=== PATIENT | female | born 1975 | race Caucasian/White ===

== ENCOUNTER 2024-04-11 10:45 | Emergency (ER) | payer OTHER, SELFPAY ==
[2024-04-11] VITALS (12 sets, daily range): BP systolic 128–137; BP diastolic 86–92; PULSE 101–121; TEMP 37.2–37.5; O2SAT 91–95; BMI 32.4
--- NOTE | 2024-04-11 11:00 | XR_ITS ---
The [address] [address] Patient Name: NATALIA ARANGO MRN: [id number] date: 1975 Sex: F Assigned Patient Location: ED.MAIN Current Patient Location: ER Accession/Order Number: [id number] Exam Date: 04/11/2024 11:07 Report Date: 04/11/2024 11:37 At the request of: ALEXA ROWLAND Procedure: XR chest 1V EXAM: XR chest 1V HISTORY: sob COMPARISON: None. TECHNIQUE: One view chest FINDINGS: No focal consolidation, pneumothorax, pleural effusion or significant pulmonary vascular congestion. The cardiomediastinal silhouette is within normal limits. No acute osseous abnormality. Visualized upper abdomen is unremarkable. XR/XR chest 1V IMPRESSION: No acute cardiopulmonary process. Electronically authenticated by: MIRIAN FERRER Date: 04/11/2024 11:37
--- NOTE | 2024-04-11 11:05 | ECG_ITS ---
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
[2024-04-11] MEDS: 0.9 % SODIUM CHLORIDE 1,000 ML 1000 ML IV (11:22)
[2024-04-11] MEDS: METHYLPREDNISOLONE SOD SUCC PF 125 MG/2 ML VIAL IVP (11:22)
[2024-04-11] MEDS: IPRATROPIUM/ALBUTEROL SULFATE 3 ML AMPUL.NEB IH (11:28)
[2024-04-11 11:55] LABS: Basophils Percent Auto 0.4 % (0.2-2.0); Hematocrit 42.7 % (36.0-48.0); Hemoglobin 14.1 g/dL (12.0-16.0); Immature Granulocytes Abs Auto 0.02 10^3/uL (0.00-0.03); Immature Granulocytes Pct Auto 0.4 % (0.0-0.5); Lymphocytes Absolute Auto 0.9 10^3/uL (1.2-3.8); Lymphocytes Percent Auto 16.4 % (20.5-60.0); Mean Corpuscular Hemoglobin 29.3 pg (26.7-34.0); Mean Corpuscular Volume 88.6 fL (81.0-99.0); Mean Platelet Volume 11.3 fL (9.5-13.5); Monocytes Absolute Auto 0.6 10^3/uL (0.3-0.8); Monocytes Percent Auto 10.4 % (1.7-12.0); Neutrophils Percent Auto 72.4 % (43.0-75.0); Platelet Count 199 10^3/uL (150-450); Red Blood Count 4.82 10^6/uL (4.20-5.40); Red Cell Distribution Width 13.3 % (11.0-15.0); White Blood Count 5.5 10^3/uL (4.0-11.0)
[2024-04-11 12:11] LABS: Alanine Aminotransferase 43 U/L (14-59); Albumin Globulin Ratio 1.1; Alkaline Phosphatase 82 U/L (46-116); Anion Gap 17.3; Aspartate Amino Transferase 35 U/L (15-37); BUN Creatinine Ratio 9.7; Bilirubin Total 0.7 mg/dL (0.2-1.0); Calcium 8.5 mg/dL (8.5-10.1); Chloride 102 mmol/L (98-107); Estimated GFR (African America >60 (>=60 mL/min/1.73m^2); Estimated GFR (Non-African Ame >60 (>=60 mL/min/1.73m^2); Globulin 3.5 g/dL; Glucose 109 mg/dL (74-106); Potassium 3.3 mmol/L (3.5-5.1); Sodium 140 mmol/L (136-145); Total Protein 7.5 g/dL (6.4-8.2)
[2024-04-11 12:12] LABS: Lactate/Lactic Acid 0.8 mmol/L (0.4-2.0)
[2024-04-11 12:14] LABS: Troponin I High Sensitivity 4.9 pg/mL (4.0-51.3)
--- NOTE | 2024-04-11 12:21 | CT_ITS ---
The [address] [address] Patient Name: NATALIA ARANGO MRN: [id number] date: 1975 Sex: F Assigned Patient Location: ER Current Patient Location: Accession/Order Number: [id number] Exam Date: 04/11/2024 12:40 Report Date: 04/11/2024 13:44 At the request of: ALEXA ROWLAND Procedure: CT angio chest EXAM: CT angio chest HISTORY: shortness of breath and hypoxemia clinical suspicion of pulmonary embolus. COMPARISON: Chest x-ray 04/11/2024. CT abdomen pelvis including the lower chest 04/09/2021 TECHNIQUE: CTA chest PE study. Axial scans with reformatted coronal and sagittal images, MIP images. Individualized radiation dose reduction used for this exam. Contrast: 100 mL Omnipaque 350 FINDINGS: Pulmonary arteries: Normal pulmonary artery enhancement without thrombus or embolus. Slightly heterogeneous appearance of the smaller distal sacrum segmental vessels. Lungs/pleura: No consolidation or edema or suspicious lung lesion. Minor dependent atelectasis. No pleural effusion or pneumothorax. Mediastinum: No mass or adenopathy. Normal esophagus. Normal central airways. Cardiac/vascular: Normal heart size. No pericardial effusion. Normal aorta. No right ventricular strain. No significant coronary plaque seen. No lower neck or axillary mass or adenopathy. 11 mm nodular asymmetry left breast midportion deep is nonspecific. Images the upper abdomen demonstrates heterogeneous liver with areas of fatty infiltration and parenchymal sparing. Small low-attenuation lesion left lobe near the surface is nonspecific. CT/CT angio chest IMPRESSION: 1. Negative for pulmonary embolus. 2. No acute process in the lungs. 3. Incidental findings including 11 mm left breast nodule midportion deep. Could be followed with routine mammography. 4. Heterogeneous liver with questionable small low-attenuation lesion left lobe near the surface. Does not appear acute. Could be assessed with ultrasound. Electronically authenticated by: LORI MOREL Date: 04/11/2024 13:44
[2024-04-11] MEDS: ACETAMINOPHEN 325 MG TABLET 650 MG PO (13:01)
[2024-04-11 13:09] LABS: Influenza Virus A Antigen Positive; Influenza Virus B Antigen Negative; Internal Control Within Normal Limits; SARS-CoV-2 Ag NEGATIVE (NEGATIVE)
--- NOTE | 2024-04-11 14:11 | ED_ITS ---
HPI HPI - General Adult General Chief complaint: Upper Respiratory Infection Stated complaint: Upper Respiratory Infection Time Seen by Provider: 04/11/24 11:00 Source: patient Mode of arrival: walk-in History of Present Illness HPI narrative: The patient presented to us with 3 days history of flulike symptoms of bodyaches diarrhea and itching to cough difficulty breathing and headache, it was noted that the patient pulse ox was at the 80s mostly 89% when she presented to us she is not in respiratory distress but she is tachycardic at 110 The patient denies any other complaints Related Data Previous Rx's ?Medication ?Instructions ?Recorded ondansetron 4 mg disintegrating 4 mg PO Q8H PRN nausea and 04/11/24 tablet vomiting 5 days #15 tabs oseltamivir 75 mg capsule (Tamiflu) 75 mg PO Q12H 5 days #10 caps 04/11/24 prednisone 20 mg tablet 40 mg (2 x 20 mg) PO DAILY 5 days 04/11/24 #10 tabs Allergies Allergy/AdvReac Type Severity Reaction Status Date / Time No Known Drug Allergies Allergy Verified 04/11/24 10:54 Opioid HPI Opioid Management Most Recent Opioid Data: No Data to Display Review of Systems ROS Status of ROS 10 or more systems reviewed and unremark able except as noted in history and below Exam Narrative Exam Narrative: Nurses notes and vital signs reviewed and patient is not hypoxic. General: Well-appearing and in no apparent distress. Skin: Warm, dry, no pallor noted. No rash. Head: Normocephalic, atraumatic. Neck: Supple, non-tender. Eye: Pupils are equal, round and EOMI. No scleral icterus. Ears, Nose, Mouth, and Throat: TM are clear, no nasal mucosal hypertrophy. Oral mucosa is moist, no posterior oropharynx erythema, uvula is mid-line Cardiovascular: Regular Rate and Rhythm without murmur, gallop or rub. Respiratory: Distant breathing sound bilaterally Back: No midline thoracic or lumbar vertebral tenderness. No CVA tenderness Musculoskeletal: normal ROM, no calf or popliteal tenderness, no lower extremity edema/swelling GI: Abdomen is soft, non-distended. Normal bowel sounds. No masses appreciated. No tenderness to palpation. No rebound, guarding, or rigidity noted. Neurological: A&O x4. No cranial nerve dysfunction observed. No truncal a taxia. Moves all extremities. Sensation intact. Psychiatric: Cooperative and interactive. Normal mood and affect. Constitutional Vital Signs, click to edit/add: Last Vital Signs Temp 99.0 F 04/11/24 13:55 Pulse 117 H 04/11/24 12:51 Resp 18 04/11/24 13:54 BP 128/88 04/11/24 13:53 Pulse Ox 91 L 04/11/24 13:54 O2 Del Method Nasal Cannula 04/11/24 11:30 O2 Flow Rate 2 04/11/24 11:30 Course Vital Signs Vital signs: Vital Signs Temperature 99.5 F 04/11/24 10:47 Pulse Rate 121 H 04/11/24 10:47 Respiratory Rate 26 H 04/11/24 10:47 Blood Pressure 137/92 H 04/11/24 10:47 Pulse Oximetry 92 L 04/11/24 10:47 Oxygen Delivery Method Room Air 04/11/24 10:47 Temperature 99.0 F 04/11/24 13:55 Pulse Rate 117 H 04/11/24 12:51 Respiratory Rate 18 04/11/24 13:54 Blood Pressure 128/88 04/11/24 13:53 Pulse Oximetry 91 L 04/11/24 13:54 Oxygen Delivery Method Nasal Cannula 04/11/24 11:30 Oxygen Delivery Flow Rate 2 04/11/24 11:30 Medical Decision Making [facility] Narrative Medical decision making narrative: It was noted that the patient was hypoxemic upon arrival but she was not in respiratory distress her EKG was showing sinus tachycardia with a heart rate [address] elevation and depression The patient CBC and chemistry showed no acute pathology and due to high suspicion of possible PE or any lung pathology the patient had a CT angio done that showed no PE The patient had incidental finding of nodule to the left breast that she was instructed to follow-up as outpatient with primary care with mammogram The patient influenza a positive result is mostly explaining why she is having those symptoms Right now the patient is to continue hydration in addition to she was started on Tamiflu for the next 5 days and Zofran for supportive care in addition to prednisone for her asthma control It was noted that the patient was feeling much better after initial treatment her pulse ox is 95% at room air The patient is to follow up with primary care physician in next 2-3 days or to return to the emergency department should any of the signs or symptoms worsen or new symptoms develop. The patient agrees with the following Diagnosis and Treatment plan and the patient will be discharged home. Lab Data Labs: Lab Results 04/11/24 04/11/24 Range/Units 11:25 12:53 WBC 5.5 (4.0-11.0) 10^3/uL RBC 4.82 (4.20-5.40) 10^6/uL Hgb 14.1 (12.0-16.0) g/dL Hct 42.7 (36.0-48.0) % MCV 88.6 (81.0-99.0) fL MCH 29.3 (26.7-34.0) pg MCHC 33.0 (29.9-35.2) g/dL RDW 13.3 (11.0-15.0) % Plt Count 199 (150-450) 10^3/uL MPV 11.3 (9.5-13.5) fL Neut % (Auto) 72.4 (43.0-75.0) % Lymph % (Auto) 16.4 L (20.5-60.0) % [place] % (Auto) 10.4 (1.7-12.0) % Eos % (Auto) 0.0 L (0.9-7.0) % Baso % (Auto) 0.4 (0.2-2.0) % Neut # (Auto) 4.0 (1.4-6.5) 10^3/uL Lymph # (Auto) 0.9 L (1.2-3.8) 10^3/uL [place] # (Auto) 0.6 (0.3-0.8) 10^3/uL Eos # (Auto) 0.0 (0.0-0.7) 10^3/uL Baso # (Auto) 0.0 (0.0-0.1) 10^3/uL Abs Immat Gran (auto) 0.02 (0.00-0.03) 10^3/uL Imm/Tot Granulo (auto) 0.4 (0.0-0.5) % Sodium 140 (136-145) mmol/L Potassium 3.3 L (3.5-5.1) mmol/L Chloride 102 (98-107) mmol/L Carbon Dioxide 24.0 (21.0-32.0) mmol/L Anion Gap 17.3 BUN 9.0 (7.0-18.0) mg/dL Creatinine 0.93 (0.55-1.02) mg/dL Est GFR ( Amer) >60 (>=60 mL/min/1.73m^2) Est GFR (Non-Af Amer) >60 (>=60 mL/min/1.73m^2) BUN/Creatinine Ratio 9.7 Glucose 109 H (74-106) mg/dL Lactate 0.8 (0.4-2.0) mmol/L Calcium 8.5 (8.5-10.1) mg/dL Total Bilirubin 0.7 (0.2-1.0) mg/dL AST 35 (15-37) U/L ALT 43 (14-59) U/L Alkaline Phosphatase 82 (46-116) U/L Troponin I High Sens 4.9 (4.0-51.3) pg/mL Total Protein 7.5 (6.4-8.2) g/dL Albumin 4.0 (3.4-5.0) g/dL Globulin 3.5 g/dL Albumin/Globulin Ratio 1.1 Influenza Type A Ag Positive A Influenza Type B Ag Negative SARS-CoV-2 Ag (CV2AG) Negative (NEGATIVE) Discharge Plan Discharge Chief Complaint: Upper Respiratory Infection Clinical Impression: Influenza A Patient Disposition: Home, Self-Care Time of Disposition Decision: 14:16 Condition: Good Prescriptions / Home Meds: New prednisone 20 mg tablet 40 mg PO DAILY 5 Days Qty: 10 0RF oseltamivir [Tamiflu] 75 mg capsule 75 mg PO Q12H 5 Days Qty: 10 0RF ondansetron 4 mg tablet,disintegrating 4 mg PO Q8H PRN (Reason: nausea and vomiting) 5 Days Qty: 15 0RF Print Language: Arabic Instructions: Influenza (DC) Referrals: Terri MASTERS [Primary Care Provider] - 1 week
[2024-04-11] MEDS: OSELTAMIVIR PHOSPHATE 75 MG CAPSULE PO (14:23)
== END 2024-04-11 14:29 | disposition home or self-care (01) ==
PROVIDERS: Emergency Provider Emergency Medicine; PCP Family Medicine
DX: J10.1 Influenza due to other identified influenza virus with other respiratory manifestations (principal); R00.0 Tachycardia, unspecified; R09.02 Hypoxemia; N63.20 Unspecified lump in the left breast, unspecified quadrant
CPT/HCPCS: 36415; 71045; 71275; 80053; 83605; 84484; 85025; 87804; 87811; 93005; 94640; 96361; 96374; 99285; J2919; Q9967